=== PATIENT | male | born 2005 | race Two or more races ===

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

== ENCOUNTER 2024-07-21 11:17 | Emergency (ER) | payer MEDICAID ==
[~2024-07-21] VITALS: Ht 177.8 cm; Wt 100.0 kg
[2024-07-21 11:45] VITALS: BP 108/69; PULSE 77; RESP 16; TEMP 97.6; O2SAT 97
[2024-07-21] MEDS: LORazepam 2MG/ML-1ML VIAL IM ONE (11:54)
[2024-07-21] MEDS: LORazepam 2MG/ML-1ML VIAL ONE (11:56)
[2024-07-21] MEDS: diphenhdrAMINE HCL 50 MG/1 ML VL IM ONE (11:57)
[2024-07-21] MEDS: diphenhdrAMINE HCL 50 MG/1 ML VL ONE (11:57)
[2024-07-21] MEDS ORDERED: LORazepam 2MG/ML-1ML VIAL IV ONE (12:00)
[2024-07-21] MEDS ORDERED: MAGNSUS48 PO (12:06)
[2024-07-21] MEDS ORDERED: BAC09TP TOP (12:06)
[2024-07-21] MEDS: TETANUS-DIPTH-ACEL PERTUSSIS 0.5ML SYR Tdap IM ONE (12:25)
== END 2024-07-21 13:07 | disposition home or self-care (01) ==
LOC: EDBD 11:17 → ER 11:17
DX: S00.01XA Abrasion of scalp, initial encounter (principal); K59.00 Constipation, unspecified; Z90.49 Acquired absence of other specified parts of digestive tract; W22.01XA Walked into wall, initial encounter; Y93.89 Activity, other specified; Y92.218 Other school as the place of occurrence of the external cause; Y99.8 Other external cause status
CPT/HCPCS: 90471; 90715; 96372; 99284; J1200; J2060